=== PATIENT | female | born 1995 | race Caucasian/White ===

== ENCOUNTER 2017-08-12 18:16 | Emergency (ER) | payer SELFPAY ==
[2017-08-12] MEDS ORDERED: ONDANSETRON HCL INJ/PF 4 MG/2 ML SDV IV ONE (18:59)
[2017-08-12] MEDS ORDERED: FENTANYL CITRATE INJ/PF 100 MCG/2 ML AMPUL IV ONE (18:59)
[2017-08-12] MEDS ORDERED: NORMAL SALINE 1000 ML 1,000 ML IV PRN (18:59)
--- NOTE | 2017-08-12 19:00 | ER Document Report ---
ED Medical Screen (RME) - General Chief Complaint: Vomiting Stated Complaint: VOMITING Time Seen by Provider: 08/12/17 18:39 Mode of Arrival: Wheelchair Information source: Patient, Parent Notes: 22-year-old female presents with complaints of nausea vomiting abdominal pain. Patient notes she has a history of pancreatitis which has an unknown cause. Patient admits to vomiting 5 times today denies any fevers or chills I have greeted and performed a rapid initial assessment of this patient. A comprehensive ED assessment and evaluation of the patient, analysis of test results and completion of the medical decision making process will be conducted by additional ED providers. PHYSICAL EXAMINATION: GENERAL: pale appearing HEAD: Atraumatic, normocephalic. EYES: Pupils equal round extraocular movements intact, conjunctiva are normal. ENT: Nares patent NECK: Normal range of motion LUNGS: No respiratory distress Musculoskeletal: Normal range of motion NEUROLOGICAL: Normal speech, normal gait. PSYCH: Normal mood, normal affect. SKIN: Warm, Dry, normal turgor, no rashes or lesions noted. - Related Data Allergies/Adverse Reactions: diphenhydramine [From Benadryl] Allergy (Verified 08/12/17 18:19) doxycycline Allergy (Verified 08/12/17 18:19) Physical Exam - Vital signs Vitals: Temp Pulse Resp BP Pulse Ox 98.0 F 114 H 24 H 140/100 H 100 08/12/17 18:23 08/12/17 18:23 08/12/17 18:23 08/12/17 18:23 08/12/17 18:23 Course - Vital Signs Vital signs: Temp Pulse Resp BP Pulse Ox 98.0 F 114 H 24 H 140/100 H 100 08/12/17 18:23 08/12/17 18:23 08/12/17 18:23 08/12/17 18:23 08/12/17 18:23
--- NOTE | 2017-08-12 19:22 | ER Document Report ---
ED GI/ - General Chief Complaint: Vomiting Stated Complaint: VOMITING Time Seen by Provider: 08/12/17 18:39 Mode of Arrival: Wheelchair Notes: Patient is a 22-year-old female that comes emergency department for chief complaint of vomiting, she has vomited 5 times since 1 PM, she also reports pain in her upper abdomen. She had a loose bowel movement 15 minutes prior to my evaluation, nonbloody. She reports feeling chills. No obvious sick contacts. She does have a history of pancreatitis years ago, denies alcohol, denies any surgeries, denies any daily medications. Smokes marijuana occasionally. She has an IUD. She is visiting family, mother at bedside. - Related Data Allergies/Adverse Reactions: diphenhydramine [From Benadryl] Allergy (Verified 08/12/17 18:19) doxycycline Allergy (Verified 08/12/17 18:19) Past Medical History - General Information source: Patient, Parent - Social History Smoking Status: Never Smoker Chew tobacco use (# tins/day): No Frequency of alcohol use: Rare Drug Abuse: None Lives with: Family Family History: Reviewed & Not Pertinent Patient has suicidal ideation: No Patient has homicidal ideation: No Renal/ Medical History: Denies: Hx Peritoneal Dialysis GI Medical History: Reports: Hx Pancreatitis Surgical Hx: Negative - Immunizations Immunizations up to date: Yes Hx Diphtheria, Pertussis, Tetanus Vaccination: Yes Review of Systems - Review of Systems Constitutional: No symptoms reported EENT: No symptoms reported Cardiovascular: No symptoms reported Respiratory: No symptoms reported Gastrointestinal: See HPI Genitourinary: No symptoms reported Female Genitourinary: No symptoms reported Musculoskeletal: No symptoms reported Skin: No symptoms reported Hematologic/Lymphatic: No symptoms reported Neurological/Psychological: No symptoms reported Physical Exam - Vital signs Vitals: Temp Pulse Resp BP Pulse Ox 98.0 F 114 H 24 H 140/100 H 100 08/12/17 18:23 08/12/17 18:23 08/12/17 18:23 08/12/17 18:23 08/12/17 18:23 - General General appearance: Other - Patient slightly flushed, appears under the weather , no signs of distress In distress: None - HEENT Head: Normocephalic, Atraumatic Eyes: Normal Extraocular movements intact: Yes Eyelashes: Normal Pupils: PERRL Mouth/Lips: Normal Mucous membranes: Normal Pharynx: Normal Neck: Normal - Respiratory Respiratory status: No respiratory distress Breath sounds: Normal. No: Decreased air movement, Wheezing - Cardiovascular Rhythm: Regular, Tachycardia Heart sounds: Normal auscultation, S1 appreciated, S2 appreciated - Abdominal Inspection: Normal Tenderness: Tender - Mild generalized abdominal tenderness in both upper and lower abdomen, nonspecific, no guarding, no rigidity - Back Back: Normal, Nontender. No: Tender, CVA tenderness - Extremities General upper extremity: Normal inspection, Nontender, Normal ROM, Normal strength General lower extremity: Normal inspection, Nontender, Normal ROM, Normal strength. No: Edema - Neurological Neuro grossly intact: Yes Cognition: Normal Orientation: AAOx4 [place] Coma Scale Eye Opening: Spontaneous [place] Coma Scale Verbal: Oriented Brenda Coma Scale Motor: Obeys Commands Brenda Coma Scale Total: 15 Speech: Normal Cranial nerves: Normal Cerebellar coordination: Normal Motor strength normal: LUE, RUE, LLE, RLE Additional motor exam normals: Equal screening representative Sensory: Normal - Skin Skin Temperature: Warm Skin Moisture: Dry Skin Color: Normal Course - Re-evaluation Re-evalutation: Patient tachycardic, and ill-appearing, has generalized abdominal tenderness which is not specific. She had a large episode of diarrhea. She did vomit while she was here, after being medicated, however after this she was given Reglan and nausea resolved. CBC shows leukocytosis at 24,000 with elevation of neutrophils but no bandemia. Chemistry nonspecific but consistent with dehydration, urinalysis shows 80 ketones, elevated specific gravity, and no UTI. Patient still having abdominal pain on reexamination, still has pain in the mid abdomen and generalized otherwise. Difficult to evaluate. Discussed with patient and mother, decision was made to perform CAT scan to rule out acute surgical etiology. CAT scan shows what appears to be normal appendix, shows mild colitis of the transverse colon, shows dermoid most likely, and also shows slightly displaced IUD but not in the pelvic or abdominal cavity. 08/13/17 On my reexamination patient sitting on the edge of the bed, smiling, talkative, states she feels great. Asking for fluids, food, and discharge. I discussed the workup with patient and mom in detail. Discussed leukocytosis, CAT scan results, recommended an ultrasound and at least a p.o. trial before discharge. Ultrasound was declined, patient performed p.o. trial without any difficulty at all, she was given oral antibiotics without any difficulty as well. Abdomen is now benign. Patient states she will follow-up with [facility], she states she understands the workup, she states she understands return precautions in detail including return precautions for an acute abdomen. As result patient was discharged with her mother. - Vital Signs Vital signs: Temp Pulse Resp BP Pulse Ox 98.1 F 99 12 123/65 99 08/13/17 00:55 08/13/17 00:55 08/13/17 00:55 08/13/17 00:55 08/13/17 00:55 - Laboratory Result Diagrams: 08/12/17 19:11 08/12/17 19:11 Laboratory results interpreted by me: 08/12/17 08/12/17 08/12/17 19:11 19:11 19:44 WBC 24.2 H Seg Neuts % (Manual) 87 H Lymphocytes % (Manual) 6 L Abs Neuts (Manual) 21.1 H Abs Monocytes (Manual) 1.7 H Carbon Dioxide 21 L BUN 23 H Glucose 182 H Calcium 10.3 H Total Protein 8.4 H Urine Protein 30 H Urine Ketones 80 H Ur Leukocyte Esterase SMALL H Discharge - Discharge Clinical Impression: Nausea vomiting and diarrhea, Colitis, Dehydration Abdominal pain Qualifiers: Abdominal location: generalized Qualified Code(s): R10.84 - Generalized abdominal pain Condition: Stable Disposition: HOME, SELF-CARE Additional Instructions: Your workup shows dehydration, colitis, a suspected dermoid on the left ovary, and a slightly displaced IUD. Recommendation for colitis is to rest, drink clear fluids for the first day, progress to bland food, then normal as tolerated. Take the Cipro and Flagyl as prescribed, take the Reglan for nausea , take the [place] if needed for pain. Return immediately if you worsen including spiking fever of 100.4 or greater, uncontrolled vomiting, severe pain , bloody bowel movements, or any other concerning or worsening symptoms. In regards to the IUD and the dermoid, I recommend close [facility] follow-up for treatment of both, I recommend you use backup control such as condoms until this is performed. Prescriptions: Ciprofloxacin HCl [Cipro 500 mg Tablet] 500 mg PO BID #14 tablet Hydrocodone/Acetaminophen [[place] 5-325 mg Tablet] 1 - 2 tab PO ASDIR #10 tablet Metoclopramide HCl [Reglan] 5 mg PO ASDIR PRN #20 tablet PRN Reason: Metronidazole [Flagyl 500 mg Tablet] 500 mg PO TID #21 tablet Forms: Return to Work
[2017-08-12 19:34] LABS: HEMATOCRIT 44.1 % (36.0-47.0); HEMOGLOBIN 14.9 g/dL (12.0-15.5); MEAN CORPUSCULAR HEMOGLOBIN 29.6 pg (27.0-33.4); MEAN CORPUSCULAR HGB CONC 33.8 g/dL (32.0-36.0); MEAN CORPUSCULAR VOLUME 88 fl (80-97); PLATELET COUNT 390 10^3/uL (150-450); RED BLOOD COUNT 5.04 10^6/uL (3.72-5.28); RED CELL DISTRIBUTION WIDTH 13.6 % (11.5-14.0); WHITE BLOOD COUNT 24.2 10^3/uL (4.0-10.5)
[2017-08-12 19:48] LABS: ALANINE AMINOTRANSFERASE 17 U/L (9-52); ALKALINE PHOSPHATASE 83 U/L (38-126); ANION GAP 15 (5-19); ASPARTATE AMINO TRANSFERASE 21 U/L (14-36); BILIRUBIN,DIRECT 0.4 mg/dL (0.0-0.4); BILIRUBIN,TOTAL 0.8 mg/dL (0.2-1.3); BLOOD UREA NITROGEN 23 mg/dL (7-20); CALCIUM 10.3 mg/dL (8.4-10.2); CARBON DIOXIDE 21 mmol/L (22-30); CHLORIDE 107 mmol/L (98-107); GLUCOSE 182 mg/dL (75-110); LIPASE 176.3 U/L (23-300); POTASSIUM 4.7 mmol/L (3.6-5.0); SODIUM 142.7 mmol/L (137-145); TOTAL PROTEIN 8.4 g/dL (6.3-8.2)
[2017-08-12 19:58] LABS: ABSOLUTE LYMPHOCYTES# (MANUAL) 1.5 10^3/uL (0.5-4.7); ABSOLUTE MONOCYTES # (MANUAL) 1.7 10^3/uL (0.1-1.4); ABSOLUTE NEUTROPHILS# (MANUAL) 21.1 10^3/uL (1.7-8.2); BASOPHILS % (MANUAL) 0 % (0-2); EOSINOPHILS % (MANUAL) 0 % (0-6); LYMPHOCYTES % (MANUAL) 6 % (13-45); MONOCYTES % (MANUAL) 7 % (3-13); OVALOCYTES SLIGHT; PLATELET COMMENT ADEQUATE; SEGMENTED NEUTROPHILS % (MAN) 87 % (42-78); TOTAL CELLS COUNTED 100; TOXIC GRANULATION SLIGHT
[2017-08-12] MEDS ORDERED: HYDROMORPHONE HCL INJ/PF 2 MG/ML AMPULE IV ONE (20:06)
[2017-08-12 20:08] LABS: APPEARANCE,URINE SLIGHTLY-CLOUDY; BILIRUBIN,URINE NEGATIVE (NEGATIVE); COLOR,URINE YELLOW; GLUCOSE, URINE NEGATIVE (NEGATIVE); KETONES,URINE 80 mg/dL (NEGATIVE); LEUKOCYTE ESTERASE,URINE SMALL (NEGATIVE); NITRITE,URINE NEGATIVE (NEGATIVE); PROTEIN,URINE 30 mg/dL (NEGATIVE); URINE SPECIFIC GRAVITY 1.029; UROBILINOGEN,URINE NEGATIVE mg/dL (<2.0)
[2017-08-12] MEDS ORDERED: METOCLOPRAMIDE HCL INJ/PF 10 MG/2 ML SDV IV ONE (22:07)
--- NOTE | 2017-08-12 23:53 | RADIOLOGY REPORT (SQ) ---
EXAM DESCRIPTION: CT ABD/PELVIS WITH IV ORAL CLINICAL HISTORY: 22 years Female, mid/lower abd pain, vomiting, leukocytosis COMPARISON: None. TECHNIQUE: 84 mL [id number] IV and oral contrast. Coronal and sagittal reformat. This exam was performed according to our departmental dose-optimization program, which includes automated exposure control, adjustment of the mA and/or kV according to patient size and/or use of iterative reconstruction technique. FINDINGS: Mild diffuse bowel wall thickening of the transverse colon. IUD is displaced at the level of the lower uterine segment 2.6 cm from the fundus. 5 cm cystic mass with a small calcification in fat in the left ovarian fossa may indicate a 5 cm left ovarian dermoid. Correlation with pelvic sonogram recommended. No evidence of appendicitis. Likely normal appendix partially discerned. Inferior thorax, liver, gallbladder, pancreas, spleen, adrenals, renal system, lymphatics, vasculature, and musculoskeleton appear otherwise unremarkable. IMPRESSION: 1. Mild transverse colitis pattern. 2. 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 3. Partial inferior displacement of an IUD which may decrease efficacy.
[2017-08-13] MEDS ORDERED: METRONIDAZOLE 500 MG TABLET PO ONE
[2017-08-13] MEDS ORDERED: CIPROFLOXACIN HCL 500 MG TABLET PO ONE
[2017-08-13] MEDS ORDERED: ONDANSETRON ODT 4 MG TAB (6 TAB/ER DISP) PO PRN (00:59)
[2017-08-13] MEDS ORDERED: HYDROCODONE/ACETAMINOPHEN 5-325 MG (6 TAB/ER DISP) PO PRN (00:59)
[2017-08-13 01:11] VITALS: BP 123/65
== END 2017-08-13 01:18 | disposition home or self-care (01) ==
LOC: ER 18:16
DX: K52.9 Noninfective gastroenteritis and colitis, unspecified (principal); T83.32XA Displacement of intrauterine contraceptive device, initial encounter; Y76.8 Miscellaneous obstetric and gynecological devices associated with adverse incidents, not elsewhere classified; E86.0 Dehydration; R68.83 Chills (without fever); R10.84 Generalized abdominal pain; R00.0 Tachycardia, unspecified; Z87.19 Personal history of other diseases of the digestive system; Z88.8 Allergy status to other drugs, medicaments and biological substances; Z88.1 Allergy status to other antibiotic agents
CPT/HCPCS: 99284; 96361; 96374; 96375; 36415; 83690; 84703; 85025; 80053; 81001; 74177; J3010; J2765; J1170; J2405; J7030